=== PATIENT | male | born 1995 | race Hispanic/Latino ===

== ENCOUNTER 2024-05-04 13:57 | Outpatient (CLI) | payer OTHER, SELFPAY ==
--- NOTE | ~2024-05-04 | CT_ITS ---
CLINICAL INDICATION: Abdominal pain with change in bowel habits COMPARISON: None. TECHNIQUE: Multiple contiguous axial images of the abdomen and pelvis were performed following the ad ministration of with 100 mL Omnipaque-350 intravenous contrast The dose-length product (DLP) was 386.92 mGy-cm. Automated exposure control and iterative reconstruction technique were employed. FINDINGS/OBSERVATIONS: Visualized lower thorax: The bilateral lung bases are clear. The heart is of normal size, without pericardial effusion. Liver: The liver enhances homogeneously, and is not enlarged measuring 18 cm in longitudinal dimension. Gallbladder and biliary system: The gallbladder is decompressed, and otherwise unremarkable. Pancreas: The pancreas enhances homogeneously without ductal dilatation. Spleen: The spleen enhances homogeneously and is not enlarged measuring 9 cm in longitudinal dimension. Kidneys: The bilateral kidneys enhance symmetrically without hydronephrosis or renal calculi. Adrenal glands: Unremarkable. Gastrointestinal tract: Fecal stasis distending the rectum with associated mural thickening. Appendix: The appendix is not definitively visualized. However, no pericecal inflammatory change is i dentified suggest the presence of acute appendicitis. Vasculature: Unremarkable. Lymph nodes: No pathologically enlarged or morphologically suspicious lymph nodes within the retroperitoneum or at the root of the mesentery. Pelvic structures: The bladder is distended, and otherwise unremarkable. The prostate gland is not enlarged. Body wall and musculoskeletal: Small fat-containing umbilical hernia. No significant degenerative disease within the lower thoracic or lumbosacral spine. IMPRESSION: Fecal stasis distending the rectum with associated mural thickening. Otherwise, unremarkable contrast-enhanced CT examination of the abdomen and pelvis, as detailed above . Reviewed, dictated and finalized at location A. [employer] IMPRESSION: Fecal stasis distending the rectum with associated mural thickening. Otherwise, unremarkable contrast-enhanced CT examination of the abdomen and pel vis, as detailed above.
== END 2024-05-04 13:58 | disposition home or self-care (01) ==
LOC: MICIMG 14:00
PROVIDERS: PCP Family Medicine; Visit Provider Family Medicine
DX: K56.41 Fecal impaction (principal); K62.89 Other specified diseases of anus and rectum
CPT/HCPCS: 74177; Q9967